=== PATIENT | male | born 1985 | race Caucasian/White ===

== ENCOUNTER → 2018-06-26 | Outpatient (CLI) | payer OTHER ==
--- NOTE | 2018-06-26 13:19 | MRI ---
EXAM DESCRIPTION: Shoulder,Left: Magnetic Resonance Imaging. CLINICAL HISTORY: LEFT AC DISLOCATION COMPARISON: Left shoulder radiographs 12/07/2010. TECHNIQUE: Multiplanar, high-field MRI, multiple sequences, without contrast, left shoulder. FINDINGS: Minimal fluid in the mid and distal subscapularis tendon. Minimal thickening. No significant fluid accumulation at the insertion site. Remaining rotator cuff tendons are unremarkable. No rotator cuff muscle atrophy. Tiny cysts in the left humeral head. Minimal fluid in the subacromial-subdeltoid bursa. Marrow edema in the distal left clavicle and in the subchondral left acromion process. Minimal to moderate erosion of the distal clavicle subchondral bone. Minimal expansion of the joint capsule on the superior and inferior direction, inferiorly impressing on the ischial tendinous junction of the supraspinatus. No jhon fracture of the left distal clavicle or acromion is noted. Minimal fluid in the subcoracoid bursa. Coracoid ligaments are intact. Minimal fluid density in the vicinity of the posterior labrum at the junction with the bicipital labral anchor. Normal signal in the remainder of the anchor, long-head biceps tendon, and glenoid labrum. No subchondral lesions in the glenohumeral joint and no effusion. IMPRESSION: 1. Tendinopathy of the distal subscapularis tendon with no definite insertion tear. Subacromial-subdeltoid bursitis. 2. Subcoracoid bursitis. Arthropathy versus posttraumatic injury in the left AC joint. Subchondral erosion or bone loss distal left clavicle. Enlargement of the joint inferiorly impressing on the musculotendinous junction of the left supraspinatus. 3. Question of a small labral tear superiorly at the posterior junction of the bicipital labral anchor. Consider MR arthrography for better definition. Electronically signed by: Celestino Lubin MD 06/26/2018 1:18 PM [employer]
== END ==
LOC: MRI 10:10
PROVIDERS: ATTEND Family Medicine
DX: S43.102D Unspecified dislocation of left acromioclavicular joint, subsequent encounter (principal); M75.52 Bursitis of left shoulder